=== PATIENT | female | born 1970 | race Caucasian/White ===

== ENCOUNTER 2017-04-26 21:15 | Emergency (ER) | payer BC ==
[~2017-04-26] VITALS: Ht 177.8 cm; Wt 75.8 kg
[2017-04-26 21:17] VITALS: BP 149/89; PULSE 81; RESP 18; RESP 20; TEMP 98.4; TEMP 98.7; O2SAT 100; O2SAT 99
--- NOTE | 2017-04-26 21:28 | PD ---
HPI Chief Complaint: Chest Pain Time Seen by Provider: 21:22 Travel History International Travel<30 days: No Contact w/Intl Traveler<30days: No History of Present Illness HPI 46yo F with PMH of hypothyroidism s/p thyroidectomy on synthroid, HTN not on medication presents to the ED with c/o left sided chest pain today. Pain is sharp, intermittent and nonradiating. Associated with mild sob and nausea. Denies any fever, vomiting, focal weakness or numbness. Pt states she has never had this before. Family history includes father who from heart attack in his 60s. Denies any cig smoking or drug use. Denies chronic alcohol use. Pt was just in [place] and returned 2 days ago. Denies any history of PE/DVT, bleeding disorder. PFSH Social History Tobacco Use: No Allergies-Medications (Allergen,Severity, Reaction): Coded Allergies: No Known Allergies (Unverified , 04/27/17) Reported Meds & Prescriptions Reported Meds & Active Scripts Active Ibuprofen 600 Mg Tab 600 Mg PO Q8HR PRN Reported Adderall (Amphetamine-Dextroamphetamine) 30 Mg Tab 30 Mg PO BID Avoid late evening doses. Space doses at least 4 to 6 hours if more than once/day dosing. Xanax (Alprazolam) 0.5 Mg Tab 0.5 Mg PO Q8H PRN Ambien (Zolpidem Tartrate) 10 Mg Tab 10 Mg PO HS PRN Synthroid (Levothyroxine Sodium) 137 Mcg Tab 137 Mcg PO DAILY Review of Systems Except as stated in HPI: all other systems reviewed are Neg Physical Exam Narrative GEN: 46yo F not in distress. SKIN: Warm and dry. HEAD: Normocephalic, atraumatic. EYE: Pupils reactive and equal bilaterally. NECK: No nuchal rigidity. CV: S1, S2. Lungs: CTA B/L, equal breath sounds. CHEST WALL: No rash. ABD: soft, NT/ND. NEURO: No focal neurologic deficits. Muscle strength 5/5 in all extremities. Sensation intact. Data Data Last Documented VS Vital Signs Date Time Temp Pulse Resp B/P Pulse Ox O2 Delivery O2 Flow Rate FiO2 04/26/17 23:00 18 98 Room Air 04/26/17 22:52 88 115/76 04/26/17 21:17 98.7 Orders Electrocardiogram (04/26/17 21:22) Basic Metabolic Panel (Bmp) (04/26/17 21:22) Ckmb (Isoenzyme) Profile (04/26/17 21:22) Complete Blood Count With Diff (04/26/17 21:22) Magnesium (Mg) (04/26/17 21:22) Prothrombin Time / Inr (Pt) (04/26/17 21:22) Act Partial Throm Time (Ptt) (04/26/17 21:22) Troponin I (04/26/17 21:22) Chest, Single Ap (04/26/17 21:22) Ecg Monitoring (04/26/17 21:22) Bilateral Bp Monitoring (04/26/17 21:22) Iv Access Insert/Monitor (04/26/17 21:22) Oximetry (04/26/17 21:22) Oxygen Administration (04/26/17 21:22) Aspirin (Aspirin) (04/26/17 21:30) D-Dimer (04/26/17 21:34) Ondansetron Inj (Zofran Inj) (04/26/17 21:45) CKMB (04/26/17 21:30) CKMB% (04/26/17 21:30) Ct Pulmonary Angiogram (04/26/17 ) Bhcg Screen Qualitative (04/26/17 22:25) Iohexol 350 Inj (Omnipaque 350 Inj) (04/26/17 22:57) Ketorolac Inj (Toradol Inj) (04/26/17 23:15) Labs Laboratory Tests Test 04/26/17 04/26/17 21:00 21:30 Beta HCG, Qualitative LESS THAN 1 MIU/ML White Blood Count 9.5 TH/MM3 Red Blood Count 4.95 MIL/MM3 Hemoglobin 14.3 GM/DL Hematocrit 42.0 % Mean Corpuscular Volume 84.9 FL Mean Corpuscular Hemoglobin 28.9 PG Mean Corpuscular Hemoglobin 34.1 % Concent Red Cell Distribution Width 12.2 % Platelet Count 280 TH/MM3 Mean Platelet Volume 7.2 FL Neutrophils (%) (Auto) 85.4 % Lymphocytes (%) (Auto) 7.9 % Monocytes (%) (Auto) 3.3 % Eosinophils (%) (Auto) 2.6 % Basophils (%) (Auto) 0.8 % Neutrophils # (Auto) 8.1 TH/MM3 Lymphocytes # (Auto) 0.8 TH/MM3 Monocytes # (Auto) 0.3 TH/MM3 Eosinophils # (Auto) 0.2 TH/MM3 Basophils # (Auto) 0.1 TH/MM3 CBC Comment DIFF FINAL Differential Comment Prothrombin Time 9.8 SEC Prothromb Time International 0.9 RATIO Ratio Activated Partial 28.8 SEC Thromboplast Time D-Dimer Quantitative (PE/DVT) 0.61 MG/L FEU Sodium Level 141 MEQ/L Potassium Level 4.8 MEQ/L Chloride Level 107 MEQ/L Carbon Dioxide Level 25.3 MEQ/L Anion Gap 9 MEQ/L Blood Urea Nitrogen 8 MG/DL Creatinine 0.84 MG/DL Estimat Glomerular Filtration 72 ML/MIN Rate Random Glucose 82 MG/DL Calcium Level 8.7 MG/DL Magnesium Level 2.6 MG/DL Total Creatine Kinase 119 U/L Creatine Kinase MB LESS THAN 0.5 NG/ML Troponin I LESS THAN 0.02 NG/ML MDM Medical Decision Making Medical Screen Exam Complete: Yes Emergency Medical Condition: Yes Interpretation(s) EKG: NSR 89bpm. Normal axis. No ST segment elevation or depression. Differential Diagnosis Musculoskeletal pain vs. anxiety vs. PE vs. PTX vs. pneumonia Narrative Course 46yo F with very atypical chest pain. Labs reviewed, no leukocytosis. Troponin negative. CKMB negative. D-dimer is elevated at 0.61. CXR showed no evidence of acute cardiopulmonary disease. CT angio showed no PE. Tiny right middle lob nodule, repeat noncontrast CT chest suggested in 6 months as follow up. Informed pt of this. Pt given aspirin 325mg PO and toradol IV because she had mild headache that feels like her usual headache that she complained about on reevaluation. It is from her neck up and sounds like tension headache. No focal neurologic deficits on exam. No fever. No red flags. Pain improved after toradol. I recommend observation for chest pain center for serial EKG and cardiac enzyme but pt states she does not want to stay. I think pt has low risk for this atypical chest pain but would still rule it out in chest pain center since it is her first time. Pt is refusing admission and has capacity to make decisions. Understands the risk of leaving and will follow up with PMD. Return precautions given. Diagnosis Primary Impression: Atypical chest pain Patient Instructions: General Instructions Departure Forms: Tests/Procedures Additional Instructions: CT chest showed a tiny right middle lobe nodule, please repeat CT chest without contrast in 6 months for follow up. Please follow up with your PMD in 1-2 days. Return to the ED if symptoms worsen. Med/Other Pt SpecificInfo: Prescription(s) given Scripts Ibuprofen 600 Mg [id number] Mg PO Q8HR PRN (PAIN) #20 TAB Ref 0 Prov:Lucero Celeste DO 04/26/17 Disposition: 01 DISCHARGE HOME Condition: Stable Lucero Celeste DO Apr 26, 2017 21:28
[2017-04-26] MEDS ORDERED: ASPIRIN 325 MG TAB PO ONE (21:30)
--- NOTE | 2017-04-26 21:42 | RADHPO ---
EXAM DATE/TIME: 04/26/2017 21:33 [facility] COMPARISON: No previous studies available for comparison. INDICATIONS : Chest pain. MEDICAL HISTORY : None. SURGICAL HISTORY : None. ENCOUNTER: Initial ACUITY: 1 day PAIN SCORE: 2/10 LOCATION: Bilateral chest FINDINGS: A single view of the chest demonstrates the lungs to be symmetrically aerated without evidence of mas s, infiltrate or effusion. The cardiomediastinal contours are unremarkable. Osseous structures are intact.CONCLUSION: No evidence of acute cardiopulmonary disease. Augustus García MD on April 26, 2017 at 21:40 Board Certified Radiologist. This report was verified electronically.
[2017-04-26] MEDS ORDERED: ONDANSETRON HCL 4 MG/2 ML VIAL IV PUSH ONE (21:45)
[2017-04-26 21:47] VITALS: BP 128/85; PULSE 87; RESP 18; O2SAT 99
[2017-04-26 21:54] LABS: AUTOMATED NEUTROPHIL # 8.1 TH/MM3 (1.8-7.7); BASOPHIL # 0.1 TH/MM3 (0-0.2); BASOPHIL % 0.8 % (0.0-2.0); EOSINOPHIL # 0.2 TH/MM3 (0-0.4); EOSINOPHIL % 2.6 % (0.0-4.0); LYMPH % 7.9 % (9.0-44.0); LYMPHOCYTE # 0.8 TH/MM3 (1.0-4.8); MEAN CELL VOLUME 84.9 FL (80.0-100.0); MEAN CORPUSCULAR HEMOGLOBIN 28.9 PG (27.0-34.0); MEAN CORPUSCULAR HGB CONC 34.1 % (32.0-36.0); MONO % 3.3 % (0.0-8.0); NEUT % 85.4 % (16.0-70.0); PLATELET COUNT 280 TH/MM3 (150-450); RED BLOOD COUNT 4.95 MIL/MM3 (4.00-5.30); RED CELL DISTRIBUTION WIDTH 12.2 % (11.6-17.2); WHITE BLOOD COUNT 9.5 TH/MM3 (4.0-11.0)
[2017-04-26 21:55] LABS: HEMO FLAGS DIFF FINAL
[2017-04-26 21:57] LABS: CHLORIDE 107 MEQ/L (98-107); POTASSIUM 4.8 MEQ/L (3.5-5.1); SODIUM (NA) 141 MEQ/L (136-145)
[2017-04-26 22:00] LABS: ANION GAP 9 MEQ/L (5-15); BICARBONATE 25.3 MEQ/L (21.0-32.0); BLOOD UREA NITROGEN 8 MG/DL (7-18); MAGNESIUM 2.6 MG/DL (1.5-2.5)
[2017-04-26 22:01] LABS: APTT (PATIENT) 28.8 SEC (24.3-30.1); INTERNATIONAL NORMALIZED RATIO 0.9 RATIO; PROTHROMBIN TIME - PATIENT 9.8 SEC (9.8-11.6)
[2017-04-26 22:03] LABS: GLOMERULAR FILTRATION RATE 72 ML/MIN (>89)
[2017-04-26] MEDS ORDERED: ALPR.5 PO (22:04)
[2017-04-26] MEDS ORDERED: LEVO-86 PO (22:04)
[2017-04-26] MEDS ORDERED: AMBI10TA PO (22:04)
[2017-04-26 22:06] LABS: CREATINE KINASE 119 U/L (26-192)
[2017-04-26 22:18] LABS: CKMB LESS THAN 0.5 NG/ML (0.5-3.6)
[2017-04-26 22:52] VITALS: BP 115/76; PULSE 88; RESP 18; O2SAT 100
[2017-04-26] MEDS ORDERED: IOHEXOL 350 MG/ML 10 ML VIAL (for RAD DIAG) IV ONE (22:57)
--- NOTE | 2017-04-26 23:04 | RADHPO ---
EXAM DATE/TIME: 04/26/2017 22:36 [facility] COMPARISON: No previous studies available for comparison. INDICATIONS : Chest pain along with elevated D-Dimer. Evaluate for plumonary embolism IV CONTRAST: 71 cc Omnipaque 350 (iohexol) IV RADIATION DOSE: 8.10 CTDIvol (mGy) MEDICAL HISTORY : Hypothyroidism. SURGICAL HISTORY : Hysterectomy. ENCOUNTER: Initial ACUITY: 1 day PAIN SCALE: 3/10 LOCATION: chest TECHNIQUE: Volumetric scanning of the chest was performed using a pulmonary embolism protocol MIP images were re constructed. Using automated exposure control and adjustment of the mA and/or kV according to patien t size, radiation dose was kept as low as reasonably achievable to obtain optimal diagnostic quality images. FINDINGS: There is a small approximate 6 mm nodule in right middle lobe most likely benign and could be followe d. There is no pleural effusion. No appreciable pathological adenopathy is seen within the mediastin um. There is no evidence for PE for technique. CONCLUSION: 1. There is no evidence for PE for technique. 2. Tiny right middle lobe nodule, repeat noncontrast chest CT is suggested in 6 months as a conservat sarah follow up. Samara Goncalves MD on April 26, 2017 at 23:00 Board Certified Radiologist. This report was verified electronically.
[2017-04-26] MEDS ORDERED: KETOROLAC TROMETHAMINE 30 MG/ML (IVP) VIAL IV PUSH ONE (23:15)
[2017-04-26] MEDS ORDERED: IBUP-232 PO (23:37)
[2017-04-27] MEDS ORDERED: ADDE30TA PO (03:40)
--- NOTE | 2017-04-27 07:07 | EKG ---
Date Performed: 04/26/2017 Time Performed: 21:24:57 PTAGE: 46 years EKG: Sinus rhythm NORMAL ECG NO PREVIOUS TRACING DOCTOR: Chetan Berg Interpretating Date/Time 04/27/2017 07:07:05
== END 2017-04-26 23:54 | disposition home or self-care (01) ==
LOC: PHED 21:15
DX: R07.89 Other chest pain (principal); E03.9 Hypothyroidism, unspecified; Z79.899 Other long term (current) drug therapy
CPT/HCPCS: 71010; 71275; 80048; 82550; 82552; 83735; 84484; 84703; 85025; 85379; 85610; 85730; 93005; 96374; 96375; 99285; J1885; J2405; Q9967

== ENCOUNTER 2017-04-27 02:45 | Observation (INO) | payer BC ==
[~2017-04-27] VITALS: Ht 177.8 cm; Wt 75.8 kg
[2017-04-27] VITALS (10 sets, daily range): BP systolic 84–119; BP diastolic 56–81; PULSE 82–103; RESP 16–19; TEMP 98–98.2; O2SAT 95–100
[~2017-04-27 02:45] MED LIST: ALPR.5 PO; AMBI10TA PO; IBUP-232 PO; LEVO-86 PO
[2017-04-27] MEDS ORDERED: MORPHINE SULFATE 4 MG/ML INJ IV PUSH ONE (03:00)
--- NOTE | 2017-04-27 03:04 | PD ---
HPI Chief Complaint: Chest Pain Time Seen by Provider: 02:55 Travel History International Travel<30 days: No Contact w/Intl Traveler<30days: No Traveled to known affect area: No History of Present Illness HPI 46 yo F c/o chest tightness predominantly retrosternal with radiation to R shoulder. She was seen here earlier with a similar complaint however work up was unremarkable and pt refused CLIENT ACCOUNT SPECIALIST evaluation. Pt recently travelled throughout [place] ; CTA negative for PE. No personal hx dm/hld/cad. Pt's father suffered CAD leading to at age 64. Pt returned home after evaluation here and suffered with some dyspnea and persistent chest pain, evidently worsening, prompting her reevaluation here. Nausea reported without vomiting. No fever or cough. PMH includes ADD, anxiety, Asperger's syndrome, and HTN. PFSH Past Medical History ADD: Yes (1999) Anxiety: Yes Thyroid Disease: Yes (Hypothyroidism) Past Surgical History Gynecologic Surgery: Yes Hysterectomy: Yes (2006) Social History Alcohol Use: No Tobacco Use: No Substance Use: No Allergies-Medications (Allergen,Severity, Reaction): Coded Allergies: No Known Allergies (Unverified , 04/27/17) Reported Meds & Prescriptions Reported Meds & Active Scripts Active Ibuprofen 600 Mg Tab 600 Mg PO Q8HR PRN Reported Adderall (Amphetamine-Dextroamphetamine) 30 Mg Tab 30 Mg PO BID Avoid late evening doses. Space doses at least 4 to 6 hours if more than once/day dosing. Xanax (Alprazolam) 0.5 Mg Tab 0.5 Mg PO Q8H PRN Ambien (Zolpidem Tartrate) 10 Mg Tab 10 Mg PO HS PRN Synthroid (Levothyroxine Sodium) 137 Mcg Tab 137 Mcg PO DAILY Review of Systems Except as stated in HPI: all other systems reviewed are Neg Physical Exam Narrative GENERAL: 46 yo F, WNWD, moderate distress, anxious SKIN: Warm and dry. HEAD: Atraumatic. Normocephalic. EYES: Pupils equal and round. No scleral icterus. No injection or drainage. ENT: No nasal bleeding or discharge. Mucous membranes pink and moist. NECK: Trachea midline. No JVD. CARDIOVASCULAR: Regular rate and rhythm. RESPIRATORY: No accessory muscle use. Clear to auscultation. Breath sounds equal bilaterally. GASTROINTESTINAL: Abdomen soft, non-tender, nondistended. Hepatic and splenic margins not palpable. MUSCULOSKELETAL: Extremities without clubbing, cyanosis, or edema. No obvious deformities. NEUROLOGICAL: Awake and alert. No obvious cranial nerve deficits. Motor grossly within normal limits. Five out of 5 muscle strength in the arms and legs. Normal speech. PSYCHIATRIC: Appropriate mood and affect; insight and judgment normal. Data Data Last Documented VS Vital Signs Date Time Temp Pulse Resp B/P Pulse Ox O2 Delivery O2 Flow Rate FiO2 04/27/17 03:44 84 16 118/75 100 Nasal Cannula 2 04/27/17 02:53 98.2 VS reviewed Orders Electrocardiogram (04/27/17 02:55) Ckmb (Isoenzyme) Profile (04/27/17 02:55) Troponin I (04/27/17 02:55) Ecg Monitoring (04/27/17 02:55) Iv Access Insert/Monitor (04/27/17 02:55) Oxygen Administration (04/27/17 02:55) Morphine Inj (Morphine Inj) (04/27/17 03:00) Nitroglycerin Sl (Nitrostat Sl) (04/27/17 03:00) Ondansetron Inj (Zofran Inj) (04/27/17 03:15) Hepatic Functional Panel (04/27/17 03:00) Lipase (04/27/17 03:00) Prochlorperazine Inj (Compazine Inj) (04/27/17 04:00) Diphenhydramine Inj (Benadryl Inj) (04/27/17 04:00) Sodium Chlor 0.9% 1000 Ml Inj (Ns 1000 M (04/27/17 04:00) Admit Order (Ed Use Only) (04/27/17 04:18) Place In Observation (04/27/17 04:18) Activity Bed Rest With Brp (04/27/17 04:18) Vital Signs (Adult) Q4H (04/27/17 04:18) Cardiac Rhythm .As Directed (04/27/17 04:18) Notify Dr: Other .PRN (04/27/17 04:18) Notify Parameters (04/27/17 04:18) Resp Oxygen Nasal Cannula (04/27/17 ) Ckmb (Isoenzyme) Profile (04/27/17 06:00) Ckmb (Isoenzyme) Profile (04/27/17 09:00) Troponin I (04/27/17 06:00) Troponin I (04/27/17 09:00) Electrocardiogram (04/27/17 06:00) Electrocardiogram (04/27/17 09:00) ^ Obtain (04/27/17 04:18) Sodium Chloride 0.9% Flush (Ns Flush) (04/27/17 04:30) Sodium Chloride 0.9% Flush (Ns Flush) (04/27/17 09:00) Bench Scientist / Telemetry KAYODE.Q8H (04/27/17 04:18) Labs Laboratory Tests Test 04/27/17 03:00 Total Bilirubin 1.1 MG/DL Direct Bilirubin 0.2 MG/DL Indirect Bilirubin 0.9 MG/DL Aspartate Amino Transf 12 U/L (AST/SGOT) Alanine Aminotransferase 22 U/L (ALT/SGPT) Alkaline Phosphatase 60 U/L Total Creatine Kinase 58 U/L Troponin I LESS THAN 0.02 NG/ML Total Protein 7.5 GM/DL Albumin 3.8 GM/DL Lipase 125 U/L MDM Medical Decision Making Medical Screen Exam Complete: Yes Emergency Medical Condition: Yes Medical Record Reviewed: Yes Differential Diagnosis NSTEMI, unstable angina, coronary vasospasm, PE, PTX, aortic dissection, pericarditis, myocarditis, endocarditis, PNA, esophageal disease, aneurysm, musculoskeletal etiologies, anxiety, cocaine/sympathomimetic abuse Narrative Course EKG shows sinus rhythm rate 88 no ischemic injury type pattern LFTs normal Lipase normal Tn < 0.02 x 2 CBC from approx 6 hours prior normal BMP from approx 6 hours prior normal Upon reassessment complaints of persistent discomfort, primarily retrosternal and midline thoracic back, along with nausea reported. Chest pain center evaluation considered appropriate. Case d/w Dr Jimenez at 424AM. Pt c/o back pain and neck pain coupled with headache at 400AM, Compazine, Benadryl and IVF given. Diagnosis Primary Impression: Chest pain Qualified Code: R07.9 - Chest pain, unspecified type Additional Impressions: Headache Qualified Code: R51 - Nonintractable headache, unspecified chronicity pattern , unspecified headache type Back pain Qualified Code: M54.6 - Acute midline thoracic back pain Admitting Information Admitting Physician Requests: Observation Fer Davila MD Apr 27, 2017 03:04
[2017-04-27] MEDS ORDERED: ONDANSETRON HCL 4 MG/2 ML VIAL IV PUSH ONE (03:15)
[2017-04-27] MEDS: NITROGLYCERIN 0.4 MG SL 25 TABS/BTL SL SCH ×3 (03:22→03:42)
[2017-04-27 03:26] LABS: ALT (GPT) 22 U/L (10-53); AST (GOT) 12 U/L (15-37)
[2017-04-27 03:28] LABS: INDIRECT BILIRUBIN 0.9 MG/DL (0.0-0.8); TOTAL BILIRUBIN ADULT 1.1 MG/DL (0.2-1.0)
[2017-04-27 03:29] LABS: ALKALINE PHOSPHATASE 60 U/L (45-117)
[2017-04-27 03:32] LABS: CREATINE KINASE 58 U/L (26-192)
[2017-04-27] MEDS ORDERED: ADDE30TA PO (03:40)
[2017-04-27] MEDS ORDERED: PROCHLORPERAZINE INJ 10 MG/2 ML VIAL IV PUSH ONE (04:00)
[2017-04-27] MEDS ORDERED: diphenhydrAMINE HCL 50 MG/ML VIAL IV PUSH ONE (04:00)
[2017-04-27] MEDS ORDERED: SODIUM CHLOR 0.9% 1000 ML INJ 1,000 ML IV ONE (04:00)
[2017-04-27] MEDS ORDERED: SODIUM CHLORIDE 0.9% FLUSH 10 ML FLUSH IV FLUSH PRN (04:30)
[2017-04-27 08:14] LABS: CREATINE KINASE 44 U/L (26-192)
[2017-04-27] MEDS ORDERED: SODIUM CHLORIDE 0.9% FLUSH 10 ML FLUSH SCH (09:00)
[2017-04-27 10:20] LABS: CREATINE KINASE 44 U/L (26-192)
--- NOTE | 2017-04-27 12:31 | EKG ---
Date Performed: 04/27/2017 Time Performed: 09:23:37 PTAGE: 46 years EKG: Sinus rhythm NORMAL ECG NO SIGNIFICANT CHANGE FROM PRIOR ELECTROCARDIOGRAM. PREVIOUS TRACING : 04/27/2017 03.01 DOCTOR: Chetan Berg Interpretating Date/Time 04/27/2017 12:29:55
--- NOTE | 2017-04-27 14:29 | EKG ---
Date Performed: 04/27/2017 Time Performed: 05:52:17 PTAGE: 46 years EKG: Sinus rhythm NORMAL ECG INTERPRETATION BASED ON A DEFAULT AGE OF 38 YEARS NO PREVIOUS TRACING DOCTOR: Chetan Berg Interpretating Date/Time 04/27/2017 14:29:26
--- NOTE | 2017-04-27 15:04 | EKG ---
Date Performed: 04/27/2017 Time Performed: 03:01:37 PTAGE: 46 years EKG: Sinus rhythm NORMAL ECG NO SIGNIFICANT CHANGE FROM PRIOR ELECTROCARDIOGRAM. PREVIOUS TRACING : 04/26/2017 21.24 DOCTOR: Chetan Berg Interpretating Date/Time 04/27/2017 15:02:21
--- NOTE | 2017-04-29 11:50 | PD.AMA ---
Against Medical Advice Note Discharge Disposition: Against Medical Advice Pt Condition on Discharge: Stable Recommended Treatment Course patient completed standard chest pain rule out, however left AGAINST MEDICAL ADVICE prior to further testing. patient should follow up with primary care for medical treatment. AMA Statement Patient Liz Luis has decided to leave the hospital against medical advice. This patient has the capacity to refuse care and understands the risks of leaving, including permanent disability and/or , and has had an opportunity to ask questions about her condition. The patient has been informed that she may return for care at any time, and follow up has been arranged/ advised. Bob Grey MD Apr 29, 2017 11:50
--- NOTE | 2017-04-29 11:52 | HHI.DS ---
Discharge Summary Admission Date Apr 27, 2017 at 04:20 Discharge Date: Apr 27, 2017 Admitting Diagnosis CP, Thoracic Back Pain, Headache, Nausea (1) Chest pain ICD Code: R07.9 Procedures none Brief History - From Admission patient was not seen. Significant Findings Laboratory Tests Test 04/27/17 04/27/17 04/27/17 03:00 06:50 09:20 Total Bilirubin 1.1 MG/DL (0.2-1.0) Indirect Bilirubin 0.9 MG/DL (0.0-0.8) Aspartate Amino Transf 12 U/L (15-37) (AST/SGOT) Troponin I LESS THAN 0.02 LESS THAN 0.02 LESS THAN 0.02 NG/ML NG/ML NG/ML (0.02-0.05) (0.02-0.05) (0.02-0.05) Hospital Course patient was admitted for chest pain. Underwent chest pain rule out with negative troponins 3. Patient left AGAINST MEDICAL ADVICE prior to further workup. Pt Condition on Discharge: Stable Discharge Disposition: Discharge Home Discharge Time: <= 30 minutes Bob Grey MD Apr 29, 2017 11:52
== END 2017-04-27 10:20 | disposition left against medical advice (07) ==
LOC: PHED 02:45 → PHEDA 04:20 → PH3B 04:52
PROVIDERS: ADMIT Internal Medicine; ATTEND Internal Medicine
DX: R07.89 Other chest pain (principal); I10 Essential (primary) hypertension; E03.9 Hypothyroidism, unspecified; F84.5 Asperger's syndrome; R51 Headache; M54.6 Pain in thoracic spine; M54.2 Cervicalgia; F41.9 Anxiety disorder, unspecified; Z82.49 Family history of ischemic heart disease and other diseases of the circulatory system
CPT/HCPCS: 80076; 82550; 83690; 84484; 93005; 96365; 96375; 99285; G0378; J0780; J1200; J2270; J2405; J7030